=== PATIENT | female | born 1995 | race Two or more races ===

== ENCOUNTER 2018-08-11 00:52 | Inpatient (IN) | payer OTHER ==
[~2018-08-11] VITALS: Ht 170.2 cm; Wt 113.4 kg
[2018-08-11] VITALS (8 sets, daily range): BP systolic 91–119; BP diastolic 62–77
--- NOTE | 2018-08-11 02:45 | NUR ---
RN ADMITTING NOTES RECEIVED A DIRECT ADMIT FROM [facility]. A 22 YEAR OLD FEMALE PATIENT WITH C/O RIGHT LOWER QUADRANT ABDOMINAL PAIN. TRANSPORTED VIA GURNEY, NO APPARENT RESPIRATORY / CARDIAC DISTRESS NOTED, BREATHING EVEN AND UNLABORED, COMPLAINTS OF ABDOMINAL RLQ PAIN 10/26, INITIAL PHYSICAL ASSESSMENT DONE, SAFETY MEASURES IN PLACE, ORIENTED TO UNIT AND THE USE OF CALL LIGHT, C/O NAUSEA AT THIS TIME. WILL INFORM MD FOR ADMITTING ORDERS. WILL MONITOR ACCORDINGLY.
--- NOTE | 2018-08-11 02:50 | NUR ---
RN NOTES INFORMED DR. Jono SANTANA, AWAITING FOR ADMIT ORDERS.
--- NOTE | 2018-08-11 03:50 | NUR ---
RN NOTES CALLED [facility] INFORMED DR. Jono SANTANA REGARDING PATIENT'S ADMIT ORDERS AND PATIENT IS NAUSEOUS, ASKING FOR MEDICATIONS WITH ABDOMINAL RLQ PAIN SCALE 9/10. AWAITING FOR ORDERS.
[2018-08-11] MEDS ORDERED: IV NS 0.9% 1,000 ML IV PRN (05:08)
[2018-08-11] MEDS ORDERED: ONDANSETRON HCL/PF 4 MG/2 ML VIAL IVP PRN (05:30)
--- NOTE | 2018-08-11 05:40 | NUR ---
RN NOTES RECEIVED ORDERS FROM DR. JUDD SANTANA, NOTED AND CARRIED OUT.
[2018-08-11] MEDS: MORPHINE SULFATE INJ 2 MG/ML DISP.SYRIN IV PRN ×3 (05:43→20:14)
[2018-08-11] MEDS ORDERED: PIPERACILLIN /TAZOBACTAM 4.5 G in IV D5W 50 ML IV ONE (06:00)
[2018-08-11] MEDS ORDERED: PIPERACILLIN /TAZOBACTAM 4.5 G in IV D5W 50 ML IV SCH (06:00)
[2018-08-11] MEDS ORDERED: PIPERACILLIN /TAZOBACTAM 2.25 G VIAL IV ONE (06:05)
[2018-08-11 06:17] LABS: BASOPHILS # (AUTO) 0.1 /CMM (0.0-0.2); BASOPHILS % (AUTO) 0.5 % (0.0-2.0); HEMATOCRIT 40 % (33-45); HEMOGLOBIN 13.1 g/dL (11.5-14.8); LYMPHOCYTES # (AUTO) 0.7 /CMM (0.8-4.8); MEAN CORPUSCULAR HGB CONC 33 g/dl (31.0-36.0); MEAN CORPUSCULAR VOLUME 86 fL (82-100); MONOCYTES # (AUTO) 0.6 /CMM (0.1-1.30); MONOCYTES % (AUTO) 4.8 % (2.0-12.0); NEUTROPHILS # (AUTO) 10.4 /CMM (1.8-8.9); NEUTROPHILS % (AUTO) 88.7 % (43.0-81.0); PLATELET COUNT (AUTO) 211 /CMM (150-450); RED BLOOD CELL COUNT(AUTO) 4.69 MIL/uL (4.0-5.2); WHITE BLOOD COUNT (AUTO) 11.8 K/uL (4.3-11.0)
[2018-08-11 06:43] LABS: THYROID STIMULATING HORMONE 0.705 uIU/mL (0.358-3.74)
[2018-08-11 06:48] LABS: ALBUMIN 2.8 g/dL (3.4-5.0); BILIRUBIN,TOTAL 0.4 mg/dL (0.2-1.0); CALCIUM, SERUM 8.4 mg/dL (8.5-10.1); CREATININE 0.7 mg/dL (0.6-1.3); MAGNESIUM 2.2 mg/dL (1.8-2.4); PHOSPHORUS 3.1 mg/dL (2.5-4.9); POTASSIUM 4.1 mmol/L (3.5-5.1); TOTAL PROTEIN, SERUM 6.8 g/dL (6.4-8.2)
--- NOTE | 2018-08-11 07:18 | NUR ---
RN NOTES ALL NEEDS ATTENDED AND MET, PATIENT IS SLEEPING AT THIS TIME, ZOSYN 2.25 G X 2 VIAL, GIVEN, ORDERED ZOSYN 4.5G ONCE, CHARGE NURSE ABLE TO GET 2 VIALS EACH VIAL IS 2.25G SUPPLIES FROM [facility], MEDS ADMINISTERED. SAFETY MEASURES IN PLACE, PAIN IS TOLERABLE PER PATIENT AT THIS TIME, WILL ENDORSE TO AM NURSE FOR CONTINUITY OF CARE.
--- NOTE | 2018-08-11 08:00 | NUR ---
RN NOTES PATIENT IN THE BED SLEEPING, NO ACUTE DISTRESS, INFUSING NS AT 75 ML/HR INTACT ON RIGHT AC AREA INTACT. NEXT TO THE BED , CONTINUED MONITORING.
[2018-08-11] MEDS ORDERED: PANTOPRAZOLE 40 MG VIAL IV SCH (09:00)
[2018-08-11] MEDS ORDERED: NEXIUM 40 MG VIAL IV SCH (09:00)
--- NOTE | 2018-08-11 09:00 | NUR ---
RN NOTES RECEIVED APTIENTNIN THE BED SLEEPING, AROUSE WHEN CALLED NAME OR TOUCHED.NO ACUTE RESPIRATORY DISTRESS, V/S STABLE, INFUSING NS AT 100 ML/HR ON RIGHT AC AREA INTACT, NEXT TO THE BED, CALL LIGHT WITHIN TO REACH, SAFETY PRECAUTION MAINTAINED ALL THE TIME.
[2018-08-11] MEDS: FAMOTIDINE/PF INJ 20 MG/2 ML VIAL IV SCH ×2 (09:49→20:14)
--- NOTE | 2018-08-11 09:50 | NUR ---
RN NOTES ADMINISTERED MORPHINE 2 MG/ML IV PUSH FOR LOWER ABDOMINAL PAIN 08/26 PER PATIENT REQUEST. PATIENT STABLE NO ACUTE RESPIRATORY DISTRESS, AMBULATORY, V/S TAKEN BP-100/63, P-85, SEEN BY Dr LANDRY. PATIENT NPO FOR POSSIBLE SURGERY, SURGEON CONSULTATION. NEXT TO THE BED. CALL LIGHT WITHIN TO REACH. SAFETY PRECAUTION MAINTAINED ALL THE TIME.
[2018-08-11] MEDS: PIPERACILLIN /TAZOBACTAM 3.375 G in IV D5W 100 ML IV SCH ×2 (11:49→18:35)
--- NOTE | 2018-08-11 13:00 | NUR ---
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
[2018-08-11] MEDS ORDERED: NORE-105 PO (13:24)
[2018-08-11] MEDS ORDERED: CEPH500C2 PO (13:24)
[2018-08-11] MEDS ORDERED: MIDAZOLAM HCL 2 MG/2ML VIAL ONE (13:57)
[2018-08-11] MEDS ORDERED: FENTANYL PF 250MCG/5ML AMPUL ONE (13:57)
[2018-08-11] MEDS ORDERED: ROCURONIUM BROMIDE 50 MG/5 ML ONE (13:58)
[2018-08-11] MEDS ORDERED: FAMOTIDINE/PF INJ 20 MG/2 ML VIAL IV ONE (13:58)
[2018-08-11] MEDS ORDERED: BUPIVACAINE MPF 0.5% W/EPI INJ 30 ML VIAL ONE (14:02)
[2018-08-11] MEDS ORDERED: BUPIVACAINE 0.25% 75 MG/30 ML VIAL ONE (14:02)
[2018-08-11] MEDS ORDERED: LIDOCAINE HCL/PF 1% 30 ML SDV ONE (14:02)
--- NOTE | 2018-08-11 16:00 | NUR ---
RN NOTES PATIENT BACK FROM SURGERY AT THIS TIME , AWAKE, A/O X3, V/S TAKEN BP-99/62, P-73, R-18, O2-99 ROOM AIR-98. PATEIN WAS COMPLAINING OF PAIN IN ABDOMEN 9/10 PER PAIN SCALE, DRESSING INTACT. APPLIED ICE BAG ON ABDOMEN. INFUSING NS AT 100 ML/HR ON RIGHT AC AREA . DVT PUMP ON. GIVEN INCENTIVE SPIROMETER AND EDUCATED. PATIENT VERBALIZED UNDERSTANDING. PATIENT FULL LIQUID DIET, GIVEN ICE CHIPS. NEXT TO THE BED.
--- NOTE | 2018-08-11 16:47 | NUR ---
RN NOTES ADMINISTERED DILAUDID 1 MG/ML IV PUSH FOR PAIN 9/10 IN ABDOMEN, PER PATIENT REQUEST, V/S TAKEN BP 110/64, P-76, CONTINUED MONITORING.
[2018-08-11] MEDS ORDERED: HYDROMORPHONE 1 MG/1 ML DISP.SYRIN IV PRN (17:00)
[2018-08-11] MEDS: GABAPENTIN 300 MG CAPSULE PO SCH (18:30)
[2018-08-11] MEDS: ACETAMINOPHEN 325 MG TABLET PO SCH (18:30)
[2018-08-11] MEDS: IBUPROFEN 400 MG TABLET PO SCH (18:30)
--- NOTE | 2018-08-11 18:30 | NUR ---
RN NOTES SCHEDULED MEDICATION ADMINISTERED, V/S STABLE, DVT PIMP ON, INFUSING ZOSYN 25 ML/HR ON RIGHT FA INTACT. PATIENT TURN AND REPOSTION SELF IN THE BED. CALL LIGHT WITHIN TO REACH. FAMILY NEXT TO THE BED. ENDORSED ONCOMING NURSE FOR PLAN OF CARE.
--- NOTE | 2018-08-11 19:55 | NUR ---
RN NOTES RECEIVED PATIENT AWAKE IN BED, CALM, RESTING COMFORTABLY, PAIN IS TOLERABLE AT THIS TIME, ENCOURAGE TO DO DEEP BREATHING EXERCISES, AND USE INCENTIVE SPIROMETRY Q 2 HOURS WHEN AWAKE, REPOSITIONED FOR COMFORT, FAMILY AT BEDSIDE AT THIS TIME, PATIENT ON FULL LIQUID DIET, OPERATIVE SITE CLEAN DRY AND INTACT, DRESSING SAFETY MEASURES IN PLACE, ALL NEEDS ATTENDED, WILL CONTINUE TO MONITOR ACCORDINGLY.
[2018-08-11] MEDS ORDERED: IV NS 0.9% 1,000 ML BAG IV SCH (21:30)
[2018-08-12] MEDS ORDERED: IV NS 0.9% 1,000 ML BAG IV PRN (02:00)
[2018-08-12] MEDS: IV NS 0.9% 1,000 ML IV PRN (02:24)
[2018-08-12] MEDS: GABAPENTIN 300 MG CAPSULE PO SCH ×3 (02:30→17:04)
[2018-08-12] MEDS: IBUPROFEN 400 MG TABLET PO SCH ×3 (02:30→17:05)
[2018-08-12] MEDS: ACETAMINOPHEN 325 MG TABLET PO SCH ×3 (02:30→17:05)
[2018-08-12] MEDS: PIPERACILLIN /TAZOBACTAM 3.375 G in IV D5W 100 ML IV SCH ×3 (02:30→17:05)
[2018-08-12 06:36] LABS: BASOPHILS % (AUTO) 0.3 % (0.0-2.0); EOSINOPHILS % (AUTO) 0.1 % (0.0-6.0); HEMATOCRIT 37 % (33-45); HEMOGLOBIN 12.4 g/dL (11.5-14.8); LYMPHOCYTES # (AUTO) 1.1 /CMM (0.8-4.8); LYMPHOCYTES % (AUTO) 16.1 % (20.0-44.0); MEAN CORPUSCULAR HGB CONC 33 g/dl (31.0-36.0); MEAN CORPUSCULAR VOLUME 86 fL (82-100); MONOCYTES # (AUTO) 0.5 /CMM (0.1-1.30); MONOCYTES % (AUTO) 6.7 % (2.0-12.0); NEUTROPHILS # (AUTO) 5.3 /CMM (1.8-8.9); NEUTROPHILS % (AUTO) 76.8 % (43.0-81.0); PLATELET COUNT (AUTO) 208 /CMM (150-450); RED BLOOD CELL COUNT(AUTO) 4.33 MIL/uL (4.0-5.2); WHITE BLOOD COUNT (AUTO) 6.9 K/uL (4.3-11.0)
[2018-08-12 06:58] LABS: CALCIUM, SERUM 8.2 mg/dL (8.5-10.1); CREATININE 0.7 mg/dL (0.6-1.3); MAGNESIUM 2.3 mg/dL (1.8-2.4); PHOSPHORUS 3.5 mg/dL (2.5-4.9); POTASSIUM 4.3 mmol/L (3.5-5.1)
--- NOTE | 2018-08-12 07:22 | NUR ---
MS RN OPENING NOTES RECEIVED PATIENT AWAKE IN BED IN NO ACUTE SIGNS OF DISTRESS. FAMILY @ BEDSIDE. A/O X4 AND VERBALLY RESPONSIVE, DENIES PAIN OR ANY DISCOMFORTS AT THIS TIME. ON ROOM AIR, RESPIRATIONS EVEN AND UNLABORED. IV ACCESS ON RAC INTACT AND PATENT, IVF INFUSING WELL ORDERED, NO S/S OF INFILTRATIONS NOTED. SAFETY MEASURES IN PLACE. BED IN LOW LOCKED POSITION WITH SR UP X2. CALL LIGHT WITHIN EASY REACH OF PT. WILL CONTINUE TO MONITOR.
--- NOTE | 2018-08-12 07:33 | NUR ---
RN NOTES ALL NEEDS ATTENTED AND MET, ABLE TO REST AND SLEEP AT INTERVALS, ON FULL LIQUIDS, ENDORSE TO AM NURSE FOR CONTINUITY OF CARE.
[2018-08-12 08:00] VITALS: BP 99/56
[2018-08-12] MEDS: FAMOTIDINE/PF INJ 20 MG/2 ML VIAL IV SCH ×2 (08:29→20:34)
--- NOTE | 2018-08-12 08:54 | NUR ---
RN NOTES PATIENT TOLERATED FULL LIQUIDS DIET AT BREAKFAST. DR SNOWDEN CAME AND SEEN PT WITH ORDER TO PUT PT ON SOFT DIET AT LUNCHTIME AND ADVANCE DIET TOLERATED. WILL CARRY OUT ORDERS.
--- NOTE | 2018-08-12 14:27 | NUR ---
RN NOTES PATIENT TOLERATED SOFT DIET AT LUNCH TIME WITHOUT PROBLEMS. NO NAUSEA AND VOMITING NOTED. NO ABDOMINAL PAIN. DIET ADVANCED TO REGULAR TO DIET PER MD ORDER. WILL CONTINUE TO MONITOR.
--- NOTE | 2018-08-12 15:30 | NUR ---
RN NOTES PT'S TWO DRESSING OUT OF THREE ON HER ABDOMEN CAME OFF. MARCELO INTACT WITH NO BLEEDING, PUS OR LEAKAGE NOTED. SITES CLEANSED WITH NS AND APPLIED NEW DRESSINGS. WILL CONTINUE TO MONITOR.
[2018-08-12 16:00] VITALS: BP 116/63
--- NOTE | 2018-08-12 18:35 | NUR ---
MS RN CLOSING NOTES PATIENT AWAKE AND RESTING IN BED WITH PARTNER AT BEDSIDE. A/O X4 AND ABLE TO MAKE NEEDS KNOWN. ON ROOM AIR, TOLERATING WELL WITH NO SOB NOTED. PT TOLERATED REGULAR DIET AT DINNER TIME, NO N &V NO ABDOMINAL PAIN VOICED AFTER EATING. DRESSINGS ON ABDOMEN C/D/I. IV ACCESS ON RAC INTACT AND PATENT, IV ATB ZOSYN 3.376MG @ 25ML/HR INFUSING AT THIS TIME, NO S/S OF INFILTRATIONS NOTED. ALL NEEDS AND CARE ATTENDED WELL. SAFETY MEASURES KEPT IN PLACE. BED IN LOW LOCKED POSITION WITH SR UP X2. CALL LIGHT WITHIN EASY REACH OF PT. WILL ENDORSE TO NUCLEAR REACTOR ENGINEER NURSE FOR MELISSA.
--- NOTE | 2018-08-12 19:00 | NUR ---
RN Medsurg opening notes Received PT from morning nurse. PT is alert and oriented X4. PT is resting in bed comfortably. Pt's at the bed side. PT respiration is equal and unlabored. NO SOB. No nausea or vomiting. PT denies any pain or any discomfort. IV sites is on R AC 201G, intact, patent and infusing well. Bed at low position, brakes on, call light is within reach. Will continue to monitor.
[2018-08-12 20:00] VITALS: BP 112/66
[2018-08-12] MEDS: MORPHINE SULFATE INJ 2 MG/ML DISP.SYRIN IV PRN (21:12)
--- NOTE | 2018-08-12 21:12 | NUR ---
JOSIANE tucker PT is complaining of abdominal pain around the incision sites 8/10 of numeric pain scale. Administered Morphine sulfate 2mg/ml IV push for abdominal pain around the incision sites. Will continue to monitor.
--- NOTE | 2018-08-12 22:00 | NUR ---
RN medsurg notes PT is resting in bed comfortably in bed. NO sign of pain or any discomfort at this time. PT's at the bed sites. Will continue to monitor.
--- NOTE | 2018-08-12 23:00 | NUR ---
RN medsurg notes PT is complaining burning at the IV sites. Inserted new IV at Right AC # 20G. PT tolerated well. Will continue to monitor.
--- NOTE | 2018-08-13 01:00 | NUR ---
RN medsurg notes PT is complaining burning at the IV sites on the Right AC # 20G. Removed and applied ice cool pack. Inserted New IV sites at Right Wrist # 22 G. PT tolerated well. Will continue to monitor.
[2018-08-13] MEDS: ACETAMINOPHEN 325 MG TABLET PO SCH ×2 (01:38→09:41)
[2018-08-13] MEDS: PIPERACILLIN /TAZOBACTAM 3.375 G in IV D5W 100 ML IV SCH ×2 (01:39→09:18)
[2018-08-13] MEDS: GABAPENTIN 300 MG CAPSULE PO SCH ×2 (01:39→09:28)
[2018-08-13] MEDS: IBUPROFEN 400 MG TABLET PO SCH ×2 (01:39→09:27)
--- NOTE | 2018-08-13 06:00 | NUR ---
JOSIANE mcginnis Revised notes Per Supervisor Hand Silvering, Pt asked the labor mediator to comeback later. Correcting note.
--- NOTE | 2018-08-13 06:00 | NUR ---
RN medsurvivek notes Per clinical pharmacy specialist, PT asked the pharmacy to comeback later.
--- NOTE | 2018-08-13 06:21 | NUR ---
RN medsurg closing notes PT is resting in bed comfortably. Arouse easily. PT is alert and oriented X4. PT's at the bed side. Respiration is equal and unlabored. No complains of pain or any discomfort. No nausea or vomiting. NO SOB. Afebrile. New IV sites on R Wrist is patent, intact and infusing well. PT's gait is steady. Cleaned around the incision sites with iodine and applied gauze and abdominal pads. Dressing around the incision is intact and dry. Routine meds including PRN meds have been given. PT had 2 BM during shift. PT had good amount of intake and output. PT tolerating well regular diet. Bed at low position, brakes on and call light is with in reach. Will endorse to Morning nurse for MELISSA.
[2018-08-13 08:00] VITALS: BP 104/71
--- NOTE | 2018-08-13 08:00 | NUR ---
MS RN AM NOTES RECEIVED PATIENT AWAKE IN BED IN NO ACUTE SIGNS OF DISTRESS. @ BEDSIDE. A/O X4 AND VERBALLY RESPONSIVE, DENIES PAIN OR ANY DISCOMFORTS AT THIS TIME. ON ROOM AIR, RESPIRATIONS EVEN AND UNLABORED. IV ACCESS ON RAC INTACT AND PATENT, IVF INFUSING WELL ORDERED, NO S/S OF INFILTRATIONS NOTED. AMBULATES AD SAHRA WITH STEADY GAIT.SAFETY MEASURES IN PLACE. BED IN LOW LOCKED POSITION WITH SR UP X2. CALL LIGHT WITHIN EASY REACH OF PT. WILL CONTINUE TO MONITOR.
[2018-08-13 08:34] LABS: BASOPHILS # (AUTO) 0.1 /CMM (0.0-0.2); BASOPHILS % (AUTO) 1.1 % (0.0-2.0); EOSINOPHILS % (AUTO) 0.9 % (0.0-6.0); HEMATOCRIT 37 % (33-45); HEMOGLOBIN 12.2 g/dL (11.5-14.8); LYMPHOCYTES # (AUTO) 1.8 /CMM (0.8-4.8); LYMPHOCYTES % (AUTO) 32.3 % (20.0-44.0); MEAN CORPUSCULAR HGB CONC 33 g/dl (31.0-36.0); MEAN CORPUSCULAR VOLUME 87 fL (82-100); MONOCYTES # (AUTO) 0.5 /CMM (0.1-1.30); MONOCYTES % (AUTO) 9.7 % (2.0-12.0); NEUTROPHILS # (AUTO) 3.1 /CMM (1.8-8.9); PLATELET COUNT (AUTO) 175 /CMM (150-450); RED BLOOD CELL COUNT(AUTO) 4.26 MIL/uL (4.0-5.2); WHITE BLOOD COUNT (AUTO) 5.6 K/uL (4.3-11.0)
[2018-08-13 08:47] LABS: CALCIUM, SERUM 8.1 mg/dL (8.5-10.1); CREATININE 0.7 mg/dL (0.6-1.3); POTASSIUM 4.2 mmol/L (3.5-5.1)
--- NOTE | 2018-08-13 09:00 | NUR ---
PT REFUSED MOTRIN 800 MG TABS AND TYLENOL 650 MG TABS PO
[2018-08-13] MEDS: FAMOTIDINE/PF INJ 20 MG/2 ML VIAL IV SCH (09:09)
[2018-08-13] MEDS: IV NS 0.9% 1,000 ML IV PRN (09:18)
[2018-08-13] MEDS ORDERED: ONDANSETRON HCL/PF 4 MG/2 ML VIAL IVP PRN (09:30)
--- NOTE | 2018-08-13 14:41 | NUR ---
DISCHARGE INSTRUCTIONS,MED TEACHING AND WOUND CARE TEACHING GIVEN TO THE PT.IV H/L REMOVED TO RT WRIST WITH NO BLEEDING NOTED.PT TOLERATED WELL. NO SWELLING OR REDNESS ON THE SITE.DISCHARGED PT WITH STABLE V/S ACCOMPANIED BY HER MOM AND -AMBULATING WITH STEADY GAIT.
== END 2018-08-13 14:40 | disposition home or self-care (01) | DRG 234 ==
LOC: MED 02:15
PROVIDERS: ADMIT Family Medicine; ATTEND Nurse Practitioner Acute Care
PROC: 0DTJ4ZZ Resection of Appendix, Percutaneous Endoscopic Approach (ICD-10-PCS; principal; 2018-08-11)
DX: K37 Unspecified appendicitis (principal); E44.0 Moderate protein-calorie malnutrition; L73.2 Hidradenitis suppurativa; R73.03 Prediabetes; Z83.2 Family history of diseases of the blood and blood-forming organs and certain disorders involving the immune mechanism
CPT/HCPCS: 36415; 80048-TC; 80053-TC; 80061-TC; 83735-TC; 84100-TC; 84443-TC; 84703-TC; 85025-TC; 86850-TC; 87081-TC; 88304-TC; A6253; A6403; G0378; J0690; J1100; J1170; J2250; J2270; J2405; J2543; J2704; J2710; J2765; J3010; J3490; J7030; J7060